=== PATIENT | female | born 1975 | race Caucasian/White ===

== ENCOUNTER 2017-12-22 13:53 | Outpatient (CLI) | payer BC | END 2017-12-22 13:54 | disposition home or self-care (01) | LOC: BICMAMMO 13:53 | PROVIDERS: ATTEND Obstetrics & Gynecology | DX: N63.20 Unspecified lump in the left breast, unspecified quadrant (principal) | CPT/HCPCS: 77066; G0279 ==

== ENCOUNTER → 2017-12-30 | Day surgery (SDC) | payer BC | LOC: BICULT 13:39 | PROVIDERS: ATTEND Obstetrics & Gynecology | PROC: 0HBU3ZX Excision of Left Breast, Percutaneous Approach, Diagnostic (ICD-10-PCS; principal; 2017-12-30) | DX: C50.212 Malignant neoplasm of upper-inner quadrant of left female breast (principal) | CPT/HCPCS: 19083; 88305; 88341; 88342 ==

== ENCOUNTER 2018-03-19 08:32 | Outpatient (CLI) | payer BC ==
--- NOTE | 2018-03-19 11:35 | CT ---
CT THORAX WITH IV CONTRAST: Date: 03-19-18 History: Left sided breast cancer, diagnosed in November 2017. Patient currently on chemotherapy. Anh ent has right axillary pain/arm pit pain with breast cancer in lymph nodes. Comparison: None available. FINDINGS: The right internal jugular vein Metaport catheter is noted in place with the tip at the caval atrial junction. There is a metallic density seen within the medial aspect of the left breast which may be related to either surgical clips or biopsy marker clip. No discrete mass is seen on CT evaluation in this region . There is no evidence of axillary, hilar, or mediastinal lymphadenopathy seen. Thyroid gland has a normal CT appearance. Mediastinum has a normal CT appearance. The lungs are clear without evidence of a pulmonary nodule or mass. Minimal dependent bibasilar atele ctasis is present. The osseous structures have a normal appearance and no lytic or sclerotic osseous metastatic lesions are visualized. Visualized upper abdomen has a normal CT appearance. The bilateral adrenal glands are normal in appea melanie. IMPRESSION: 1. No acute findings are seen in the chest. 2. No evidence of metastatic disease. 3. There is no mass or lymphadenopathy seen in the right axillar region at site of the patient's repo rted pain. POS: [facility]
== END 2018-03-19 08:33 | disposition home or self-care (01) ==
LOC: SCSCT 08:32
PROVIDERS: ATTEND Internal Medicine Hematology & Oncology
DX: C50.919 Malignant neoplasm of unspecified site of unspecified female breast (principal); M79.601 Pain in right arm
CPT/HCPCS: 71260

== ENCOUNTER 2018-04-14 12:34 | Outpatient (CLI) | payer BC | END 2018-04-14 12:35 | disposition home or self-care (01) | LOC: ULT 12:34 | PROVIDERS: ATTEND Internal Medicine Hematology & Oncology | DX: Z51.11 Encounter for antineoplastic chemotherapy (principal); C50.212 Malignant neoplasm of upper-inner quadrant of left female breast; Z79.899 Other long term (current) drug therapy; I36.1 Nonrheumatic tricuspid (valve) insufficiency | CPT/HCPCS: 93306 ==

== ENCOUNTER 2018-07-20 12:49 | Outpatient (CLI) | payer BC ==
--- NOTE | 2018-07-20 15:49 | NM ---
CARDIAC MUGA SCAN: 07/20/18 HISTORY: Encounter for followup examination after completed treatment for malignant neoplasm. History of breas t cancer. RADIOPHARMACEUTICAL: 28.1 millicuries technetium 99m sulfur colloid, IV. FINDINGS: Complete left anterior oblique imaging of the heart is obtained. No definite wall motion abnormality is appreciated. The calculated left ventricular ejection fraction is 62.7%. IMPRESSION: Normal LVEF at 62.7%. POS: [facility]
== END 2018-07-20 12:50 | disposition home or self-care (01) ==
LOC: NM 12:49
PROVIDERS: ATTEND Internal Medicine Hematology & Oncology
DX: C50.212 Malignant neoplasm of upper-inner quadrant of left female breast (principal)
CPT/HCPCS: 78472; A9604

== ENCOUNTER 2018-10-20 12:40 | Outpatient (CLI) | payer BC ==
--- NOTE | 2018-10-20 15:33 | NM ---
MUGA SCAN: 10/20/18 HISTORY: Encounter for followup examination after chemotherapy. Malignant neoplasm of upper inner quadrant of the left female breast. RADIOPHARMACEUTICAL: 27 millicuries of technetium 99m labeled RBCs injected intravenously. FINDINGS: The left ventricular ejection fraction measures 61%. The wall motion exam is normal. IMPRESSION: LVEF is 61%. POS: C
== END 2018-10-20 12:41 | disposition home or self-care (01) ==
LOC: NM 12:40
PROVIDERS: ATTEND Internal Medicine Hematology & Oncology
DX: C50.212 Malignant neoplasm of upper-inner quadrant of left female breast (principal)
CPT/HCPCS: 78472; A9604

== ENCOUNTER 2019-01-26 08:37 | Outpatient (CLI) | payer BC ==
--- NOTE | 2019-01-27 08:59 | MMO ---
FILMS COMPARED: The present examination has been compared to prior imaging studies performed at [facility] on 08/31/2012, 01/10/2015, 02/28/2016, 03/31/2017 and 12/22/2017. MAMMOGRAM FINDINGS: The breasts are heterogeneously dense, which could obscure a lesion on mammography. No suspicious calcifications or masses are seen. IMPRESSION: FINDINGS IN BOTH BREASTS ARE BENIGN. A ROUTINE FOLLOW-UP MAMMOGRAM IN 1 YEAR IS RECOMMENDED. ACR BI-RADS Category 2 - Benign finding
== END 2019-01-26 08:38 | disposition home or self-care (01) ==
LOC: BICMAMMO 08:37
PROVIDERS: ATTEND Internal Medicine Hematology & Oncology
DX: C50.212 Malignant neoplasm of upper-inner quadrant of left female breast (principal); N64.4 Mastodynia
CPT/HCPCS: 77066; G0279

== ENCOUNTER 2019-01-27 12:32 | Outpatient (CLI) | payer BC ==
--- NOTE | 2019-01-27 16:04 | NM ---
MUGA SCAN: DATE: 01/27/19 HISTORY: Follow-up examination after chemotherapy. Malignant neoplasm upper inner quadrant of left female pre sent. RADIOPHARMACEUTICAL: 27.3 mCi technetium-99m labeled RBCs injected intravenously. COMPARISON: 10/20/18. FINDINGS: The left ventricular ejection fraction measures 65%. Wall motion exam is normal. LVEF on 10/20/18 yaima sured 61%. IMPRESSION: LVEF of 65%. POS: C
== END 2019-01-27 12:33 | disposition home or self-care (01) ==
LOC: NM 12:32
PROVIDERS: ATTEND Internal Medicine Hematology & Oncology
DX: C50.212 Malignant neoplasm of upper-inner quadrant of left female breast (principal)
CPT/HCPCS: 78472; A9604

== ENCOUNTER 2019-02-10 09:35 | Outpatient (CLI) | payer BC ==
--- NOTE | 2019-02-10 12:26 | ULT ---
LEFT BREAST ULTRASOUND LIMITED: 02/10/2019 HISTORY: Left breast pain and swelling in the upper left breast. COMPARISON: Mammograms on 01/26/2019. FINDINGS: Limited sonographic evaluation of the left breast was performed in the region of the patient's palpab le abnormality. Real-time images were also obtained of the upper left breast. Spot images were obta ined at the focal palpable abnormality at the 11 o'clock position. There is mild skin thickening seen involving the left breast, in the upper left breast, likely relate d to prior radiation therapy. There is also minimal subcutaneous edema within the upper left breast. No mass or distortion is seen on sonographic evaluation. Comparison is made with prior mammograms, which demonstrate postoperative changes. IMPRESSION: BI-RADS category 3-Probably benign findings. Short, six-month follow-up unilateral left breast mammo gram is recommended, given recent history of lumpectomy and post radiation changes. Findings on prio r mammogram are most suggestive of postoperative changes. Sonographic findings of skin thickening ar e also likely related to post radiation changes. No focal mass is seen on sonographic evaluation and , as a result, follow-up ultrasound examination is not warranted at the time of six-month follow-up l eft breast mammogram. POS: OFF
== END 2019-02-10 09:36 | disposition home or self-care (01) ==
LOC: BICULT 09:35
PROVIDERS: ATTEND Internal Medicine Hematology & Oncology
DX: N64.4 Mastodynia (principal); N63.22 Unspecified lump in the left breast, upper inner quadrant

== ENCOUNTER 2019-02-22 10:35 | Outpatient (CLI) | payer BC ==
--- NOTE | 2019-02-22 12:26 | ULT ---
LEFT LOWER EXTREMITY VENOUS ULTRASOUND: Comparison: None. History: Left lower leg pain and cramping. Patient has history of breast cancer in remission. Technique: Multiplanar grayscale and color doppler images were obtained in a left lower extremity krishna ous ultrasound spectral analysis of the doppler waveforms were performed. FINDINGS: Left common femoral vein, profunda femoral vein, superficial femoral vein, and popliteal vein are nor mal in appearance without visible thrombus. These vessels demonstrate normal compression, flow, and a ugmentation. The posterior tibial vein and greater saphenous vein are also patent. IMPRESSION: 1. No evidence of left lower extremity DVT. POS: [facility]
== END 2019-02-22 10:36 | disposition home or self-care (01) ==
LOC: ULT 10:35
PROVIDERS: ATTEND Internal Medicine Hematology & Oncology
DX: M79.605 Pain in left leg (principal); Z85.3 Personal history of malignant neoplasm of breast

== ENCOUNTER 2019-12-01 11:20 | Outpatient (CLI) | payer BC ==
--- NOTE | 2019-12-01 11:37 | RAD ---
EXAM: Chest PA and lateral: HISTORY: Cough COMPARISON: 05/30/2015 FINDINGS: Heart: Normal cardiac silhouette Aorta: Unremarkable Pulmonary vessels: Normal Costophrenic angles: Costophrenic angles are clear. Lungs: No consolidation or masses. Pneumothorax: No pneumothorax Osseous structures: No osseous abnormalities IMPRESSION: No acute cardiopulmonary process.
== END 2019-12-01 11:21 | disposition home or self-care (01) ==
LOC: RAD 11:20
PROVIDERS: ATTEND Internal Medicine Hematology & Oncology
DX: R09.1 Pleurisy (principal); R05 Cough
CPT/HCPCS: 71046; 82728